=== PATIENT | female | born 1945 | race Caucasian/White ===

== ENCOUNTER 2017-07-25 12:24 | Emergency (ER) | payer OTHER ==
[~2017-07-25] VITALS: Ht 149.9 cm; Wt 54.5 kg
[~2017-07-25 12:24] MED LIST: AMOX400S9 PO; ATOR20TA PO; FLUT1SPR9 EACH NARE; LEVO100T4 PO; LISI10TA PO; PROMSYP39 PO
[2017-07-25 12:35] VITALS: BP 116/55; PULSE 87; RESP 18; TEMP 97.9; O2SAT 98
--- NOTE | 2017-07-25 14:56 | PD ---
HPI Chief Complaint: Musculoskeletal Complaint Time Seen by Provider: 14:44 Travel History International Travel<30 days: No Contact w/Intl Traveler<30days: No Traveled to known affect area: No History of Present Illness HPI This patient complains of left knee pain. Duration 2 days. Severity is moderate. It is worse with weightbearing. She woke up morning with the pain. There was no injury. No other joints are bothering her. She denies fever. Symptoms have no alleviating factors. PFSH Past Medical History Hx Anticoagulant Therapy: No Cardiovascular Problems: No High Cholesterol: Yes Chemotherapy: No Cerebrovascular Accident: No Diabetes: No Diminished Hearing: No Gastrointestinal Disorders: Yes (history of esophageal stricture. Difficulty swallowing.) GERD: Yes Hypertension: Yes Respiratory: No Thyroid Disease: Yes Tetanus Vaccination: > 5 Years ?: Not Menopausal: Yes Past Surgical History Abdominal Surgery: Yes (CHOLECYSTECTOMY) AICD: No Body Medical Devices: NONE PER PT Section: Yes Cholecystectomy: Yes Endocrine Surgery: Yes (THYROIDECTOMY) Gynecologic Surgery: Yes () Hysterectomy: No Joint Replacement: No Pacemaker: No Other Surgery: Yes (THYROIDECTOMY / right leg sx 08/25/2014) Social History Alcohol Use: No Tobacco Use: Yes (1PPD) Substance Use: No Allergies-Medications (Allergen,Severity, Reaction): Coded Allergies: No Known Allergies (Verified , 02/05/16) Reported Meds & Prescriptions Reported Meds & Active Scripts Active Flonase Allergy Relief (Fluticasone Propionate (Nasal)) 50 Mcg/Act Spr 2 [place] EACH NARE DAILY Phenergan Dm Syrup (Promethazine HCl/Dextromethorphan) 118 Ml Syrp 5 Ml PO QID Augmentin 400MG/5ML Susp Udc (Amoxicillin/Clavulanate Potassium) 400 Mg/5 Ml Susp 875 Mg PO BID 10 Days Reported Lisinopril/Hctz 10 mg/12.5 mg 10 mg/12.5 mg Tab 1 Tab PO DAILY Atorvastatin 20 mg tab (Atorvastatin Calcium) 20 Mg Tab 20 Mg PO DAILY 30 Days Levothyroxine 100 mcg (Levothyroxine Sodium) 100 Mcg Tab 100 Mcg PO DAILY TAKE ON AN EMPTY STOMACH Review of Systems General / Constitutional: No: Fever Eyes: No: Visual changes HENT: No: Headaches Cardiovascular: No: Chest Pain or Discomfort Respiratory: No: Shortness of Breath Gastrointestinal: No: Abdominal Pain Genitourinary: No: Dysuria Musculoskeletal: Positive: Arthralgias, Limited ROM, Pain Skin: No Rash Neurologic: No: Weakness Psychiatric: No: Depression Endocrine: No: Polydipsia Hematologic/Lymphatic: No: Easy Bruising Physical Exam Narrative GENERAL: Well-nourished, well-developed patient with left knee pain . SKIN: Focused skin assessment reveals no rash and nodules. Skin is Warm and dry. HEAD: Atraumatic. Normocephalic. EYES: Pupils equal and round. No scleral icterus. No injection or drainage. ENT: No nasal bleeding or discharge. Mucous membranes pink and moist. NECK: Trachea midline. No JVD. CARDIOVASCULAR: Regular rate and rhythm. No murmur appreciated. RESPIRATORY: No accessory muscle use. Clear to auscultation. Breath sounds equal bilaterally. GASTROINTESTINAL: Abdomen soft, non-tender, nondistended. Hepatic and splenic margins not palpable. MUSCULOSKELETAL: No obvious deformities. No clubbing. No cyanosis. No edema. She has tenderness at the medial joint line of the left knee. Is readily reproducible. There is no effusion or erythema or warmth. Readily palpable pedal pulses. No signs of ischemia of the limb. NEUROLOGICAL: Awake and alert. No obvious cranial nerve deficits. Motor grossly within normal limits. Normal speech. PSYCHIATRIC: Appropriate mood and affect; insight and judgment normal. Data Data Last Documented VS Vital Signs Date Time Temp Pulse Resp B/P (MAP) Pulse Ox O2 Delivery O2 Flow Rate FiO2 07/25/17 12:35 97.9 87 18 116/55 (75) 98 Orders Orders Knee, Ltd (1 Or 2vws) (07/25/17 ) Ed Discharge Order (07/25/17 16:58) [facility] Medical Decision Making Medical Screen Exam Complete: Yes Emergency Medical Condition: Yes Medical Record Reviewed: Yes Differential Diagnosis Occult fracture, soft tissue injury, arthritis Narrative Course I have reviewed the patient's electronic medical record. Etiology of her left knee pain is unclear from history and physical. I have ordered x-rays. There is no clinical suspicion of septic joint. No clinical suspicion of DVT. X-rays of her left knee are normal. She declines pain medicine. Recommend primary care or orthopedic follow-up. Etiology of her bony knee pain is unclear. Diagnosis Primary Impression: Left medial knee pain Additional Instructions: The patient was advised to follow up with their physician and return if they worsen. Med/Other Pt SpecificInfo: Other Disposition: 01 DISCHARGE HOME Condition: Stable Jayce Jones MD Jul 25, 2017 14:56
--- NOTE | 2017-07-25 16:45 | RADRPT ---
EXAM DATE/TIME: 07/25/2017 15:17 [place] COMPARISON: No previous studies available for comparison. INDICATIONS : Left knee pain. No known injury. MEDICAL HISTORY : None. SURGICAL HISTORY : None. ENCOUNTER: Initial ACUITY: 3 days PAIN SCORE: 7/10 LOCATION: Left knee. FINDINGS: Two view examination of the left knee demonstrates no evidence of fracture or dislocation. Bony mine ralization is normal. The suprapatellar soft tissues have a normal configuration. Vascular calcifica tions are seen. There is a calcification projecting posterior to the knee likely related to a promine nt fabella. CONCLUSION: No acute disease. Thom Jonas MD on July 25, 2017 at 16:42 Board Certified Radiologist. This report was verified electronically.
== END 2017-07-25 17:32 | disposition home or self-care (01) ==
LOC: NEPD 12:24
DX: M25.562 Pain in left knee (principal); E78.00 Pure hypercholesterolemia, unspecified; K21.9 Gastro-esophageal reflux disease without esophagitis; I10 Essential (primary) hypertension; E07.9 Disorder of thyroid, unspecified; F17.200 Nicotine dependence, unspecified, uncomplicated; Z79.899 Other long term (current) drug therapy
CPT/HCPCS: 73560; 99283